=== PATIENT | female | born 2000 | race Caucasian/White ===

== ENCOUNTER 2022-07-04 09:30 | Emergency (ER) | payer OTHER, SELFPAY ==
[2022-07-04 09:41] VITALS: BP 101/77; PULSE 71; RESP 16; TEMP 36.4; O2SAT 100
--- NOTE | 2022-07-04 09:50 | ED.GENADULT ---
HPI - General Adult General Chief complaint: Extremity Injury, Lower Stated complaint: L INGROWN TOENAIL Time Seen by Provider: 07/04/22 09:50 Source: patient, RN notes reviewed and old records reviewed Mode of arrival: ambulatory Limitations: no limitations History of Present Illness HPI narrative: 22-year-old female who presents to [facility] with complaints of left ingrown toe nail to the outer aspect of left great toe for 4=5 days. Patient reports that she has noted some purulent drainage from area.Patient has some mild redness noted to the outer aspect of her left great toe nail, no drainage noted. Patient has not soaked foot or taken any OTC medication for her discomfort,denies any fevers. MD complaint: ingrown toenail left great toe Onset (ago): day(s) (4-5 days) Location: lower extremity (left outer great toe) Severity scale (1-10): 3 Treatments prior to arrival: none Related Data Allergies Allergy/AdvReac Type Severity Reaction Status Date / Time No Known Allergies Allergy Verified 07/04/22 09:41 Review of Systems Review of Systems: CONSTITUTIONAL: Denies fever, chills, or sweats. CARDIOVASCULAR: Denies chest pain, palpitations, or edema. RESPIRATORY: Denies cough or dyspnea. GASTROINTESTINAL: Denies abdominal pain, nausea, vomiting SKIN: Reports redness and minimal swelling left outer great toe. Reports minimal purulent drainage, MUSCULOSKELETAL: Denies myalgia. NEUROLOGIC: Denies headache, numbness All systems reviewed & are unremarkable except as noted in HPI and below PMFSH Social History Social History (Updated 07/06/22 @ 14:42 by Leonie Castro NP) Smoking status: Never smoker Alcohol intake: current Alcohol use details: social Substance use type: does not use Occupation/Education: student Gender identity (if verbalized by the patient): Female Comments At time of signature, agree with nursing past medical, surgical, social and family history. There is no relevant family history pertinent to the presenting complaint Exam Narrative: GENERAL: Well-appearing, well-nourished, and in no acute distress. HEAD: Normocephalic, atraumatic. EYES: PERRLA and EOMI. ENT: Nares clear, no rhinorrhea or epistaxis. Mucous membranes moist. NECK: Supple.no lymphadenopathy CHEST: Clear to auscultation. No respiratory distress. HEART: Regular rate and rhythm. No murmur heard. Normal peripheral pulses. ABDOMEN: Soft, nontender, nondistended, normal active bowel sounds. EXTREMITIES: Normal range of motion. No edema. SKIN: Warm, dry. Erythema, tenderness, no warmth to tissue of left great toe outer aspect No vesicles, bullae, necrosis, ecchymosis, crepitus noted NEURO: No focal deficits. Alert and oriented x3. Course Course Emergency Course: Patient is aware of diagnosis, understands and agrees to treatment plan. Anticipatory guidance given. Patient agrees to follow-up as directed and is aware of reasons to seek care at the emergency department. Portions of this record may have been created with voice recognition software Level of Care: Express Care Visit Vital Signs Vital signs: Vital Signs Temperature 36.4 C 07/04/22 09:41 Pulse Rate 71 07/04/22 09:41 Respiratory Rate 16 07/04/22 09:41 Blood Pressure 101/77 07/04/22 09:41 Pulse Oximetry 100 07/04/22 09:41 Temperature 36.4 C 07/04/22 09:41 Pulse Rate 71 07/04/22 09:41 Respiratory Rate 16 07/04/22 09:41 Blood Pressure 101/77 07/04/22 09:41 Pulse Oximetry 100 07/04/22 09:41 Reviewed Medical Decision Making Differential Diagnosis Differential Diagnosis: pain left great toe, ingrown nail left great toe, swelling left great toe Medical Records Medical records reviewed: Yes I reviewed the external patient's medical records. Vital Signs Vital Signs: Vital Signs Temperature 36.4 C 07/04/22 09:41 Pulse Rate 71 07/04/22 09:41 Respiratory Rate 16 07/04/22 09:41 Blood Pressure 101/77 07/04/22 09
== END 2022-07-04 10:09 | disposition home or self-care (01) ==
PROVIDERS: Emergency Provider Registered Nurse
DX: L60.0 Ingrowing nail (principal)
CPT/HCPCS: 99213; G0463